=== PATIENT | male | born 1955 | race Caucasian/White ===

== ENCOUNTER 2017-03-31 19:26 | Inpatient (IN) | payer MEDICAID ==
[~2017-03-31] VITALS: Ht 167.6 cm; Wt 77.0 kg
[2017-03-31] MEDS ORDERED: nicotine 21mg patch - 24 hr TD ONE (20:15)
[2017-03-31 20:21] LABS: BASOPHILS # (AUTO) 0.1 X10'3 (0-0.2); BASOPHILS % (AUTO) 1.1 % (0-1); EOSINOPHILS # (AUTO) 0.1 X10'3 (0-0.9); EOSINOPHILS % (AUTO) 1.2 % (0-6); HEMATOCRIT 33.5 % (42.0-52.0); HEMOGLOBIN 11.8 g/dl (14.0-17.9); LYMPHOCYTES # (AUTO) 0.8 X10'3 (1.1-4.8); LYMPHOCYTES % (AUTO) 8.2 % (21-51); MEAN CORPUSCULAR HGB CONC 35.1 % (33.0-36.5); MEAN CORPUSCULAR VOLUME 91.2 FL (78-98); MONOCYTES # (AUTO) 0.6 X10'3 (0-0.9); NEUTROPHILS % (AUTO) 83.5 % (42-75); PLATELET COUNT 254 X10'3 (140-440); RED BLOOD COUNT 3.67 X10'6 (4.70-6.10); WHITE BLOOD COUNT 9.6 X10'3 (4.5-11.0)
[2017-03-31 20:32] LABS: PARTIAL THROMBOPLASTIN TIME 25 SECONDS (22-32); PROTHROMBIN TIME 9.9 SECONDS (9.0-12.0)
[2017-03-31 20:38] LABS: ALANINE AMINOTRANSFERASE 42 U/L (12-78); ALBUMIN 3.3 G/DL (3.4-5.0); ALBUMIN/GLOBULIN RATIO 1.1 (1.1-1.5); ALKALINE PHOSPHATASE 57 IU/L (46-116); ANION GAP 6 (8-16); ASPARTATE AMINO TRANSFERASE 47 U/L (10-37); BILIRUBIN,TOTAL 0.6 MG/DL (0.1-1.0); BLOOD UREA NITROGEN 9 MG/DL (7-18); BUN/CREATININE RATIO 10.6 (5.4-32.0); CALCIUM 8.1 MG/DL (8.5-10.1); CHLORIDE 87 MMOL/L (99-107); CREATININE 0.85 MG/DL (0.60-1.10); GLUCOSE 88 MG/DL (70-104); POTASSIUM 3.9 MMOL/L (3.5-5.1); TOTAL CARBON DIOXIDE 27.4 MMOL/L (24-32); TOTAL PROTEIN 6.4 G/DL (6.4-8.2); eGFR > 90 ML/MIN
[2017-03-31 20:41] LABS: SODIUM 120 MMOL/L (135-145)
[2017-03-31] MEDS ORDERED: ondansetron/PF 4mg/2ml inj IV PRN (21:10)
[2017-03-31 21:22] LABS: BURR CELLS 1+; PLATELET ESTIMATE NORMAL
[2017-03-31] MEDS ORDERED: RISP4TAB2 PO (21:28)
[2017-03-31] MEDS ORDERED: CITA20TA11 PO (21:28)
[2017-03-31] MEDS ORDERED: TRAZ150T78 PO (21:28)
[2017-03-31] MEDS ORDERED: LITH450T2 PO (21:28)
[2017-03-31 22:18] LABS: CLARITY,URINE CLEAR (Clear); COLOR,URINE YELLOW (Yellow); GLUCOSE, URINE NEGATIVE (Neg); KETONES,URINE NEGATIVE (Neg); LEUKOCYTE ESTERASE ,URINE NEGATIVE (Neg); NITRITES, URINE NEGATIVE (Neg); OCCULT BLOOD,URINE NEGATIVE (Neg); PH,URINE 6.5 (4.8-8.0); PROTEIN,URINE NEGATIVE (Neg); UROBILINOGEN,URINE 0.2 E.U/dL (0.2-1.0)
[2017-03-31 22:23] LABS: UA COLLECTION TYPE CLN CATCH MIDSTREAM
[2017-03-31 22:25] VITALS: BP 156/81
[2017-03-31] MEDS: normal saline 1000ml 1,000 ML IV SCH (23:37)
[2017-03-31] MEDS: traZODone 150mg tablet PO SCH (23:56)
[2017-03-31] MEDS: risperiDONE 2mg tablet PO SCH (23:56)
[2017-04-01] VITALS: BP 148/76
[2017-04-01 05:13] LABS: BASOPHILS % (AUTO) 0.1 % (0-1); EOSINOPHILS # (AUTO) 0.2 X10'3 (0-0.9); EOSINOPHILS % (AUTO) 1.7 % (0-6); HEMATOCRIT 33.4 % (42.0-52.0); HEMOGLOBIN 11.6 g/dl (14.0-17.9); LYMPHOCYTES # (AUTO) 1.1 X10'3 (1.1-4.8); LYMPHOCYTES % (AUTO) 12.1 % (21-51); MEAN CORPUSCULAR HEMOGLOBIN 31.8 PG (27.0-31.0); MEAN CORPUSCULAR HGB CONC 34.6 % (33.0-36.5); MEAN CORPUSCULAR VOLUME 91.9 FL (78-98); MEAN PLATELET VOLUME 6.1 FL (7.4-10.4); MONOCYTES # (AUTO) 0.8 X10'3 (0-0.9); MONOCYTES % (AUTO) 9.1 % (2-12); PLATELET COUNT 249 X10'3 (140-440); RED BLOOD COUNT 3.63 X10'6 (4.70-6.10); RED CELL DISTRIBUTION WIDTH 14.3 % (11.5-14.5); WHITE BLOOD COUNT 9.1 X10'3 (4.5-11.0)
[2017-04-01 05:36] LABS: ALANINE AMINOTRANSFERASE 33 U/L (12-78); ALBUMIN 3.2 G/DL (3.4-5.0); ALBUMIN/GLOBULIN RATIO 1.1 (1.1-1.5); ALKALINE PHOSPHATASE 57 IU/L (46-116); ANION GAP 10 (8-16); ASPARTATE AMINO TRANSFERASE 43 U/L (10-37); BILIRUBIN,TOTAL 0.6 MG/DL (0.1-1.0); BLOOD UREA NITROGEN 9 MG/DL (7-18); BUN/CREATININE RATIO 10.7 (5.4-32.0); CALCIUM 8.1 MG/DL (8.5-10.1); CHLORIDE 90 MMOL/L (99-107); CREATININE 0.84 MG/DL (0.60-1.10); GLUCOSE 80 MG/DL (70-104); POTASSIUM 3.7 MMOL/L (3.5-5.1); SODIUM 127 MMOL/L (135-145); TOTAL CARBON DIOXIDE 27.2 MMOL/L (24-32); TOTAL PROTEIN 6.1 G/DL (6.4-8.2); eGFR > 90 ML/MIN
[2017-04-01 07:00] VITALS: BP 145/64
[2017-04-01] MEDS: lithium carbonate 150mg capsule PO SCH (08:24)
[2017-04-01] MEDS: citalopram 20mg tablet PO SCH (08:24)
[2017-04-01 11:00] VITALS: BP 145/80
[2017-04-01] MEDS: normal saline 1000ml 1,000 ML IV SCH ×2 (11:18→22:04)
[2017-04-01 20:00] VITALS: BP 163/92
[2017-04-01] MEDS: risperiDONE 2mg tablet PO SCH (22:04)
[2017-04-01] MEDS: traZODone 150mg tablet PO SCH (22:04)
[2017-04-01] MEDS ORDERED: risperiDONE 2mg tablet PO SCH (22:42)
[2017-04-02] VITALS (12 sets, daily range): BP systolic 138–176; BP diastolic 64–92
[2017-04-02] MEDS: normal saline 1000ml 1,000 ML IV SCH ×3 (03:08→23:08)
[2017-04-02 05:19] LABS: BASOPHILS % (AUTO) 0 % (0-1); EOSINOPHILS # (AUTO) 0.2 X10'3 (0-0.9); EOSINOPHILS % (AUTO) 2.1 % (0-6); HEMATOCRIT 33.4 % (42.0-52.0); HEMOGLOBIN 11.6 g/dl (14.0-17.9); LYMPHOCYTES # (AUTO) 0.9 X10'3 (1.1-4.8); LYMPHOCYTES % (AUTO) 12.1 % (21-51); MEAN CORPUSCULAR HEMOGLOBIN 32.1 PG (27.0-31.0); MEAN CORPUSCULAR HGB CONC 34.6 % (33.0-36.5); MEAN CORPUSCULAR VOLUME 92.6 FL (78-98); MEAN PLATELET VOLUME 5.9 FL (7.4-10.4); MONOCYTES # (AUTO) 0.6 X10'3 (0-0.9); MONOCYTES % (AUTO) 8.6 % (2-12); NEUTROPHILS # (AUTO) 5.6 X10'3 (1.8-7.7); NEUTROPHILS % (AUTO) 77.2 % (42-75); PLATELET COUNT 243 X10'3 (140-440); RED BLOOD COUNT 3.61 X10'6 (4.70-6.10); RED CELL DISTRIBUTION WIDTH 14.2 % (11.5-14.5); WHITE BLOOD COUNT 7.3 X10'3 (4.5-11.0)
[2017-04-02 05:51] LABS: ANION GAP 5 (8-16); BILIRUBIN,TOTAL 0.4 MG/DL (0.1-1.0); BLOOD UREA NITROGEN 8 MG/DL (7-18); BUN/CREATININE RATIO 10.1 (5.4-32.0); CALCIUM 7.9 MG/DL (8.5-10.1); CHLORIDE 97 MMOL/L (99-107); CREATININE 0.79 MG/DL (0.60-1.10); GLUCOSE 83 MG/DL (70-104); POTASSIUM 3.8 MMOL/L (3.5-5.1); SODIUM 130 MMOL/L (135-145); TOTAL CARBON DIOXIDE 27.7 MMOL/L (24-32); eGFR > 90 ML/MIN
[2017-04-02 05:52] LABS: ALANINE AMINOTRANSFERASE 31 U/L (12-78); ALKALINE PHOSPHATASE 58 IU/L (46-116); ASPARTATE AMINO TRANSFERASE 35 U/L (10-37)
[2017-04-02] MEDS: citalopram 20mg tablet PO SCH (07:19)
[2017-04-02] MEDS: nicotine 14mg patch - 24hr TD SCH (07:20)
[2017-04-02] MEDS: lithium carbonate 150mg capsule PO SCH (08:00)
[2017-04-02] MEDS ORDERED: lithium carbonate 450mg CR tablet PO SCH (08:00)
[2017-04-02] MEDS ORDERED: citalopram 20mg tablet PO SCH (08:00)
[2017-04-02] MEDS ORDERED: normal saline 1000ml 1,000 ML IV SCH (10:29)
[2017-04-02] MEDS ORDERED: midazolam 2 mg/2 ml injection IV PRN (10:30)
[2017-04-02] MEDS ORDERED: LIDOcaine 1%/PF (10mg/ml) 5ml vial SQ ONE (10:30)
[2017-04-02] MEDS ORDERED: fentaNYL/PF 50MCG/1 ML 2ML syringe IV PRN (10:30)
[2017-04-02] MEDS ORDERED: midazolam 2 mg/2 ml injection ONE (11:02)
[2017-04-02] MEDS ORDERED: fentaNYL/PF 50MCG/1 ML 2ML syringe ONE (11:02)
[2017-04-02] MEDS: traZODone 150mg tablet PO SCH (20:30)
[2017-04-02] MEDS: risperiDONE 2mg tablet PO SCH (20:30)
[2017-04-02] MEDS ORDERED: HYDROcodone/acetaminophen 5mg/325mg tablet PO PRN (21:15)
[2017-04-02] MEDS: HYDROcodone/acetaminophen 10/325mg tab PO PRN (22:26)
[2017-04-03] VITALS: BP 148/82
[2017-04-03 07:30] VITALS: BP 149/74
[2017-04-03] MEDS ORDERED: pantoprazole 40mg Tablet.DR PO SCH (07:30)
[2017-04-03] MEDS: nicotine 14mg patch - 24hr TD SCH (07:50)
[2017-04-03] MEDS: lithium carbonate 150mg capsule PO SCH (07:53)
[2017-04-03] MEDS: citalopram 20mg tablet PO SCH (07:54)
[2017-04-03] MEDS: HYDROcodone/acetaminophen 10/325mg tab PO PRN ×2 (07:59→13:28)
[2017-04-03] MEDS: normal saline 1000ml 1,000 ML IV SCH ×2 (09:08→19:08)
[2017-04-03 11:52] VITALS: BP 130/68
[2017-04-03 14:04] VITALS: BP 131/73
[2017-04-03 20:00] VITALS: BP 144/72
[2017-04-03] MEDS: traZODone 150mg tablet PO SCH (20:39)
[2017-04-03] MEDS: risperiDONE 2mg tablet PO SCH (20:40)
== END 2017-04-03 21:05 | disposition short-term general hospital (02) | DRG 197 ==
LOC: ER 19:27 → ED HOLD 21:08 → SUR 3N 22:23
PROVIDERS: ADMIT Internal Medicine; ATTEND Internal Medicine Nephrology
PROC: 0WBC3ZX Excision of Mediastinum, Percutaneous Approach, Diagnostic (ICD-10-PCS; principal; 2017-04-02)
DX: I87.1 Compression of vein (principal); E87.1 Hypo-osmolality and hyponatremia; D64.9 Anemia, unspecified; F17.210 Nicotine dependence, cigarettes, uncomplicated; F31.9 Bipolar disorder, unspecified; R59.0 Localized enlarged lymph nodes; Z88.0 Allergy status to penicillin; Z88.6 Allergy status to analgesic agent; Z79.899 Other long term (current) drug therapy
CPT/HCPCS: 32405; 36415; 71045; 77012; 80053; 80178; 81003; 85025; 85610; 85730; 86885; 86900; 86901; 87070; 93005; 93971; 94667; 94760; 99152; 99153; 99285; J2250; J2405; J3010; J7030